=== PATIENT | female | born 1950 | race Caucasian/White ===

== ENCOUNTER 2019-08-06 17:09 | Emergency (ER) | payer MEDICARE ==
[2019-08-06] MEDS ORDERED: Acetaminophen/HYDROcodone 325-5 MG Tab PO ONE (17:57)
--- NOTE | 2019-08-06 19:16 | US ---
Right upper extremity venous ultrasound: Duplex and color Doppler evaluation was obtained of the right internal jugular, subclavian, axillary, brachial, basilic, radialcomma ulnar veins and left internal jugular vein. Comparison: Prior outside venous ultrasound of 07/30/19. Findings: Partial but incomplete incompletely occluding thrombus is noted within the subclavian vein. This vein is not well seen on the outside study but I do believe that this is most likely an interval change from prior exam. Basilic vein is completely clotted as well as the cephalic vein. Other veins show no evidence of thrombosis. Impression: 1. Partial occluding clot within the right subclavian vein. This is difficult to evaluate for interval change on prior study as this vein is better is not well seen on prior exam. This finding is most likely an interval change. 2. Occluding basilic and cephalic veins which are felt to be present on prior exam. 3. No other venous thrombosis is seen. Diagnostic code #3 This report was dictated in [place] Standard Time
[2019-08-06] MEDS ORDERED: Enoxaparin 100 MG/1 ML Syringe SUBCUT ONE (19:49)
--- NOTE | 2019-08-06 22:03 | EDM.PDOC ---
ED HPI GENERAL MEDICAL PROBLEM - General Chief Complaint: Upper Extremity Injury/Pain Stated Complaint: DR. MIR SENT HER TO ER Time Seen by Provider: 08/06/19 17:21 Source of Information: Reports: Patient History Limitations: Reports: No Limitations - History of Present Illness INITIAL COMMENTS - FREE TEXT/NARRATIVE: Patient is a 69-year-old female who presents with complaints of worsening left upper extremity pain and edema. She is a patient of Dr. Tang, oncologist,. She has a diagnosis of breast cancer with metastasis to the bone and lungs. Currently on oral chemo for this. She states symptoms began on 30 July. At that time she did have an ultrasound done as ordered by Dr. Tang of her arm which blood clots. She was started on Eliquis 10 mg twice daily at that time. She states the swelling did initially improve for a couple days after this, however it has been getting progressively worse. She was seen at the [facility] prior to coming here and was advised that she needed to come here to have an ultrasound done of her arm. She denies any fever, chills, nausea, or vomiting. 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 Denies any shortness of breath or chest pain. Left Arm Pain Score (Numeric/FACES): 8 - Related Data Allergies Allergy/AdvReac Type Severity Reaction Status Date / Time No Known Allergies Allergy Verified 08/06/19 17:23 Home Meds: Home Meds Acetaminophen/Diphenhydramine [Tylenol Pm Ex-Strength Caplet] 2 each PO BEDTIME 08/06/19 [History] Apixaban [Eliquis] 10 mg PO BID 08/06/19 [History] Ferrous Sulfate [Feosol] 325 mg PO BID 08/06/19 [History] Gabapentin [Neurontin] 0 mg PO BID 08/06/19 [History] Lbrance 1 tab PO DAILY 08/06/19 [History] Letrozole [Femara] 2.5 mg PO DAILY 08/06/19 [History] Melatonin 0 mg PO BEDTIME 08/06/19 [History] Venlafaxine [Effexor] 0 mg PO DAILY 08/06/19 [History] traMADol [Ultram] 50 mg PO BID 08/06/19 [History] Past Medical History HEENT History: Reports: Hard of Hearing, Impaired Vision, Other (See Below) Other HEENT History: Retinal Separation, blind in right eye. Cardiovascular History: Reports: Blood Clots/VTE/DVT Respiratory History: Reports: Asthma, Other (See Below) Other Respiratory History: Fluid around the left lung. Gastrointestinal History: Reports: None Genitourinary History: Reports: None CLIPPER COUNTERS History: Reports: Ectopic , Musculoskeletal History: Reports: None Neurological History: Reports: None Psychiatric History: Reports: None Endocrine/Metabolic History: Reports: Obesity/BMI 30+ Hematologic History: Reports: Anticoagulation Therapy, Iron Deficiency Immunologic History: Reports: None Oncologic (Cancer) History: Reports: Bone, Breast Dermatologic History: Reports: None - Infectious Disease History Infectious Disease History: Reports: None - Past Surgical History HEENT Surgical History: Reports: Eye Surgery Respiratory Surgical History: Reports: Thoracentesis Female Surgical History: Reports: Mastectomy, Other (See Below) Other Female Surgeries/Procedures: Bilateral Mastectomy Oncologic Surgical History: Reports: Lumpectomy, Mastectomy Social & Family History - Tobacco Use Smoking Status *Q: Never Smoker - Caffeine Use Caffeine Use: Reports: Coffee, Soda - Recreational Drug Use Recreational Drug Use: No Review of Systems - Review of Systems Review Of Systems: Comprehensive ROS is negative, except as noted in HPI. ED EXAM, GENERAL - Physical Exam Exam: See Below Exam Limited By: No Limitations General Appearance: Alert, WD/WN, No Apparent Distress Respiratory/Chest: No Respiratory Distress, Lungs Clear, Normal Breath Sounds, No Accessory Muscle Use, Chest Non-Tender Cardiovascular: Regular Rate, Rhythm, No Gallop, No JVD, No Murmur, No Rub, Other (2+ edema to left forearm and hand) Peripheral Pulses: 1+: Radial (L) (faint, but palpable) Extremities: Other (redness, warmth, and 2+ edema to left forearm.) Neurological: Alert, Oriented, CN II-XII Intact, Normal Cognition, Normal Gait, Normal Reflexes, No Motor/Sensory Deficits Psychiatric: Normal Affect, Normal Mood Skin Exam: Warm, Dry, Intact, No Rash Lymphatic: No Adenopathy Course - Vital Signs Last Recorded V/S: Last Vital Signs Temp 97.8 F 08/06/19 17:19 Pulse 85 08/06/19 17:19 Resp 18 08/06/19 17:19 BP 159/86 H 08/06/19 17:19 Pulse Ox 95 08/06/19 17:19 - Orders/Labs/Meds Meds: Medications Discontinued Medications Generic Name Dose Route Start Last Admin Trade Name Michael PRN Reason Stop Dose Admin Hydrocodone Bitart/Acetaminophen 2 tab 08/06/19 17:57 08/06/19 18:02 Troy 325-5 Mg PO 08/06/19 17:58 2 tab ONETIME ONE Administration Enoxaparin Sodium 100 mg 08/06/19 19:49 08/06/19 19:59 Lovenox SUBCUT 08/06/19 19:50 100 mg ONETIME ONE Administration - Re-Assessments/Exams Free Text/Narrative Re-Assessment/Exam: [facility] was contacted and they will push the images of the original ultrasound that was done on 30 July to us. They also faxing a copy of the report. I have ordered a venous Doppler of the left arm to be compared to the images taken on 30 July to check for worsening clots. I have ordered Troy for pain. 08/06/191944 Results of the venous Doppler of the left upper extremity does show a partially occluding clot within the right subclavian vein which was not previously present. The ultrasound on 30 July did not show a DVT but rather superficial venous thrombosis of the left basilic and cephalic veins. These were also found on today's ultrasound. Based on today's report, does appear that her clotting has worsened since the rather than improved with the Eliquis. I did call [facility] and requested to speak to the oncologist tax commissioner. 1 call was unable to get a hold of this doctor. I spoke to the hospitalist Dr. Boyd. She did accept the patient for transfer as a direct admission. She requested that the patient did not take her dose of evening Eliquis yet today that we administer subcutaneous Lovenox. Discussed plan with the patient and her [id number]. The [id number] is comfortable transporting the patient to [place]. She will transfer to [facility] via private vehicle. Departure - Departure Time of Disposition: 19:43 Disposition: DC/Tfer to Acute Hospital 02 Condition: Fair Clinical Impression: DVT (deep venous thrombosis) Qualifiers: DVT location: upper extremity Affected thrombotic vein of extremity: unspecified vein of extremity Chronicity: acute Laterality: left Qualified Code( s): I82.622 - Acute embolism and thrombosis of deep veins of left upper extremity Thrombophlebitis/phlebitis, superficial Qualifiers: Superficial thrombophlebitis-Involved body area: upper extremity Laterality: left Qualified Code(s): I80.8 - Phlebitis and thrombophlebitis of other sites - Discharge Information *PRESCRIPTION DRUG MONITORING PROGRAM REVIEWED*: No *COPY OF PRESCRIPTION DRUG MONITORING REPORT IN PATIENT LEONARDO: No Referrals: PCP,Not In Area [Primary Care Provider] - Forms: ED Department Discharge Sepsis Event Note - Evaluation Sepsis Screening Result: No Definite Risk - Focused Exam Vital Signs: Vital Signs Temp Pulse Resp BP Pulse Ox 08/06/19 17:19 97.8 F 85 18 159/86 H 95 Date Exam was Performed: 08/06/19 Time Exam was Performed: 22:08
== END 2019-08-06 21:00 ==
LOC: EDBD 17:09 → JD.ED 17:09
DX: I82.622 Acute embolism and thrombosis of deep veins of left upper extremity (principal); I80.8 Phlebitis and thrombophlebitis of other sites; H54.40 Blindness, one eye, unspecified eye; E66.9 Obesity, unspecified; Z68.32 Body mass index [BMI] 32.0-32.9, adult; Z79.01 Long term (current) use of anticoagulants; Z86.718 Personal history of other venous thrombosis and embolism
CPT/HCPCS: 93971; 96372; 99285; A9270; J1650

== ENCOUNTER 2021-05-02 08:06 | Day surgery (SDC) | payer MEDICARE ==
--- NOTE | 2021-04-29 14:28 | PCM.PREANE ---
<Torito Valderrama R - Last Filed: 05/02/21 08:24> Preanesthetic Assessment - Anesthesia/Transfusion/Family Hx Anesthesia History: Prior Anesthesia Without Reaction Family History of Anesthesia Reaction: No Transfusion History: No Prior Transfusion(s) Intubation History: Unknown - Review of Systems General: No Symptoms Pulmonary: No Symptoms Cardiovascular: No Symptoms Gastrointestinal: No Symptoms, Difficulty Swallowing ("can't eat salads") Neurological: Numbness (left arm numbness, and feet) Other: Reports: Easy Bleeding, Easy Bruising, Diabetes (does not check blood sugers), Neck Pain (History of neck mass: left side), Depression, Anxiety - Physical Assessment NPO Status Time: 00:00 ASA Class: 3 Mental Status: Alert & Oriented x3 Dentition: Reports: Dentures (bottom), Broken Tooth/Teeth (4 teeth on top), Missing Tooth/Teeth, Caries Thyro-Mental Finger Breadths: 3 Mouth Opening Finger Breadths: 3 ROM/Head Extension: Limited/Partial Lungs: Clear to Auscultation, Normal Respiratory Effort Cardiovascular: Regular Rate, Regular Rhythm - Allergies Allergies/Adverse Reactions: Allergies Allergy/AdvReac Type Severity Reaction Status Date / Time No Known Allergies Allergy Verified 04/29/21 14:23 - Blood Blood Available: No Product(s) Available: None - Anesthesia Plan Pre-Op Medication Ordered: None - Acknowledgements Anesthesia Type Planned: MAC Pt an Appropriate Candidate for the Planned Anesthesia: Yes Alternatives and Risks of Anesthesia Discussed w Pt/Guardian: Yes Pt/Guardian Understands and Agrees with Anesthesia Plan: Yes PreAnesthesia Questionnaire - SUBSTANCE USE Tobacco Use Status *Q: Former Tobacco User Tobacco Use Within Last Twelve Months: No Second Hand Smoke Exposure: No Days Per Week of Alcohol Use: 0 Number of Drinks Per Day: 0 Total Drinks Per Week: 0 Recreational Drug Use History: No - HOME MEDS Home Medications: Home Meds Acetaminophen/Diphenhydramine [Tylenol Pm Ex-Strength Caplet] 2 each PO BEDTIME 08/06/19 [History] Apixaban [Eliquis] 10 mg PO BID 08/06/19 [History] Ferrous Sulfate [Feosol] 325 mg PO BID 08/06/19 [History] Gabapentin [Neurontin] 0 mg PO BID 08/06/19 [History] Lbrance 1 tab PO DAILY 08/06/19 [History] Letrozole [Femara] 2.5 mg PO DAILY 08/06/19 [History] Melatonin 0 mg PO BEDTIME 08/06/19 [History] Venlafaxine [Effexor] 0 mg PO DAILY 08/06/19 [History] traMADol [Ultram] 50 mg PO BID 08/06/19 [History] <Shawna Moreno - Last Filed: 05/02/21 09:14> Preanesthetic Assessment - Procedure Proposed Procedure: EGD with dilation - Anesthesia/Transfusion/Family Hx Anesthesia History: Prior Anesthesia Without Reaction Family History of Anesthesia Reaction: No Transfusion History: No Prior Transfusion(s) Intubation History: Unknown - Review of Systems General: No Symptoms (History of breast Cancer with metatastasis: bilateral mastectomy) Pulmonary: No Symptoms (asthma, former smoker quit date 1998, quit smoking 1998) Cardiovascular: No Symptoms (STEMI: ), Lightheadedness (episodic) Gastrointestinal: No Symptoms (Hiatal hernia), Difficulty Swallowing Neurological: No Symptoms (memory loss), Dizziness, Numbness (left arm numbness) Other: Reports: None (FE deficiency anemia(history of), ), Easy Bleeding (history of DVT on lovenox: last dose=), Easy Bruising, Diabetes, Neck Pain (History of neck mass:), Depression (history of bipolar, ), Anxiety - Physical Assessment NPO Status Date: 05/01/21 Vital Signs: HR: 81 Sat: 93% Temp: 98.6 B/P: 120/71 Resp: 18 Height: 1.68 m Weight: 79 kg ASA Class: 3 Mental Status: Alert & Oriented x3 Airway Class: Mallampati = 2 ROM/Head Extension: Limited/Partial Lungs: Clear to Auscultation, Normal Respiratory Effort Cardiovascular: Regular Rate, Regular Rhythm - Lab Values: All labs reviewed and noted and within acceptable ranges to proceed with procedure. - Imaging/EKG Impressions: EKG: SR rate=92, borderline T abnormalities in anterior leads, RSR' in V1 or V2, right, VCD, RVH. - Anesthesia Plan Pre-Op Medication Ordered: None - Acknowledgements Anesthesia Type Planned: MAC Pt an Appropriate Candidate for the Planned Anesthesia: Yes Alternatives and Risks of Anesthesia Discussed w Pt/Guardian: Yes Pt/Guardian Understands and Agrees with Anesthesia Plan: Yes PreAnesthesia Questionnaire HEENT History: Reports: Hard of Hearing, Impaired Vision, Other (See Below) Other HEENT History: Retinal Separation, blind in right eye. Cardiovascular History: Reports: Blood Clots/VTE/DVT Respiratory History: Reports: Asthma, Other (See Below) Other Respiratory History: Fluid around the left lung. Gastrointestinal History: Reports: None Genitourinary History: Reports: None STRIP PICKER History: Reports: Ectopic , Musculoskeletal History: Reports: None Neurological History: Reports: None Psychiatric History: Reports: None Endocrine/Metabolic History: Reports: Obesity/BMI 30+ Hematologic History: Reports: Anticoagulation Therapy, Iron Deficiency Immunologic History: Reports: None Oncologic (Cancer) History: Reports: Bone, Breast Dermatologic History: Reports: None - Infectious Disease History Infectious Disease History: Reports: None - Past Surgical History HEENT Surgical History: Reports: Eye Surgery Respiratory Surgical History: Reports: Thoracentesis Female Surgical History: Reports: Mastectomy, Other (See Below) Other Female Surgeries/Procedures: Bilateral Mastectomy Oncologic Surgical History: Reports: Lumpectomy, Mastectomy - CURRENT (IN HOUSE) MEDS Current Meds: Current Medications Lactated Ringer's (Ringers, Lactated) 1,000 mls @ 125 mls/hr IV ASDIRECTED AVE Stop: 05/02/21 23:00 Lidocaine/Sodium Bicarbonate (Lidocaine 1%/Sod Bicarbonate In Ns 8.4% 1 Ml Syringe) 0.25 ml IDERM ONETIME PRN PRN Reason: Prior to IV Start Stop: 05/02/21 18:00 Sodium Chloride (Sodium Chloride 0.9% 10 Ml Syringe) 10 ml FLUSH ASDIRECTED PRN PRN Reason: Keep Vein Open Stop: 05/02/21 18:00
[~2021-05-02 08:06] MED LIST: Lactated Ringers 1,000 ML IV SCH; Lidocaine 1%/Sod Bicarbonate in NS 8.4% 1 ML Syringe IDERM PRN; Sodium Chloride 0.9% 10 ML Syringe FLUSH PRN
[2021-05-02] MEDS ORDERED: fentaNYL 100 MCG/2 ML SDV ONE (08:33)
[2021-05-02] MEDS ORDERED: Propofol 200 MG/20 ML SDV ONE ×2 (08:33→09:56)
[2021-05-02] MEDS ORDERED: Lactated Ringers 1,000 ML ONE (10:06)
--- NOTE | 2021-05-02 10:41 | PCM48HPAN ---
Post Anesthesia Note - EVALUATION WITHIN 48HRS OF ANESTHETIC Vital Signs in Normal Range: Yes Patient Participated in Evaluation: Yes Respiratory Function Stable: Yes Airway Patent: Yes Cardiovascular Function Stable: Yes Hydration Status Stable: Yes Pain Control Satisfactory: Yes Nausea and Vomiting Control Satisfactory: Yes Mental Status Recovered: Yes Vital Signs: Last Vital Signs Temp 98.3 05/02/21 1030 Pulse 90 05/02/21 1030 Resp 23 05/02/21 1030 BP 117/97 05/02/21 1030 Pulse Ox 91% 05/02/21 1030
--- NOTE | 2021-05-02 12:01 | PROC ---
DATE OF OPERATION: 05/02/2021 SURGEON: Bhavin De Leon MD PREOPERATIVE DIAGNOSES: Dysphagia and esophageal stricture. POSTOPERATIVE DIAGNOSIS: Esophageal stricture at 27-31 cm from the incisors. ANESTHESIA: Monitored anesthesia care. OPERATION PERFORMED: Esophagogastroduodenoscopy with dilation to 10 mm. COMPLICATIONS: None. INDICATIONS AND CONSENT: Ms. Roche is a 71-year-old female with a large hiatal hernia as well as known distal esophageal stricture that has been dilated in the past to 13.5 mm. This was about 2-1/2 months ago. The patient developed recurrent dysphagia that became so severe that she was unable to eat anything solid and was only able to keep down some water and thin liquids. The patient returned to my clinic where I re- evaluated her and recommended repeat dilation for her. Once again discussed risks, benefits, and alternatives, and informed consent was obtained. DESCRIPTION OF PROCEDURE: The patient was taken to the procedure room, placed in left lateral decubitus position. Bite block was placed and a regular Olympus scope was placed into the mouth and taken down to the esophagus. We were able to traverse the proximal esophagus. However, at 27 cm, there was a severe stricture, unable to be traversed by a regular scope. We decided to proceed with dilation. 8, 9, 10 mm TTS ([id number]) balloon dilator was placed and the stricture was dilated to 10 mm. There was minor bleeding from the dilation site and minimal mucosal break. We attempted to pass the regular scope again but would not pass. Therefore, we decided to switch to a pediatric scope. This pediatric scope was able to traverse the strictured area with a gentle pressure. The stomach was entered and was evaluated. There seemed to be scattered small superficial ulcers in the antrum as well as the fundus. Biopsies were taken from these ulcers for pathologic exam. We went into the duodenal bulb. There was also erythema in the duodenal bulb. Biopsies were taken with cold forceps here as well. The first and second portions of duodenum were normal. EBL was minimal. On retroflexion, once again, a moderate to large hiatal hernia was observed. We went back to the area of the stricture and felt like we need to re-dilate this area as the balloon was placed once again and the entire stricture was dilated to 10 mm. The stricture spanned about 5 cm in length and the mucosa appeared normal from intraluminal aspect. This stricture has been biopsied before and was benign at that point, therefore, no need to re-biopsy the stricture today. Once the dilation was done, once again, the pediatric scope was able to traverse the stricture. Mucosal breakage was minimal and there was no bleeding at the end. Air was suctioned out from the stomach and the procedure was concluded. The patient will be allowed to return home and take liquid diet and return back in 2 weeks for another dilation. MMODAL /[id number]
== END 2021-05-02 11:30 | disposition home or self-care (01) ==
LOC: JD.SDS 08:06
PROVIDERS: ATTEND Surgery
DX: K22.2 Esophageal obstruction (principal); K44.9 Diaphragmatic hernia without obstruction or gangrene; D64.9 Anemia, unspecified; F32.A Depression, unspecified; E66.9 Obesity, unspecified; Z01.812 Encounter for preprocedural laboratory examination; Z20.822 Contact with and (suspected) exposure to COVID-19; Z79.899 Other long term (current) drug therapy; Z98.890 Other specified postprocedural states; Z87.891 Personal history of nicotine dependence
CPT/HCPCS: 43249; J2704; J3010; J7120; U0002; 00731; 99100